=== PATIENT | female | born 1980 | race Two or more races ===

== ENCOUNTER 2021-08-16 10:45 | Emergency (ER) | payer MEDICAID, OTHER ==
[~2021-08-16] VITALS: Ht 167.6 cm; Wt 108.5 kg
[2021-08-16 11:02] VITALS: BP 220/107
--- NOTE | 2021-08-16 11:07 | NUR ---
PATIENT AMB TO [facility].
[2021-08-16] MEDS ORDERED: NIFEdipine 30 MG TABER PO ONE (11:40)
[2021-08-16] MEDS ORDERED: CLIN300C2 PO (11:48)
--- NOTE | 2021-08-16 11:56 | NUR ---
Patient does not wish to proceed with medical care recommended by DR MEDINA. Patient given information related to possible complications, up to and including , which could occur as a result of leaving hospital at this time. Patient verbalizes understanding of risks involved leaving against medical advice. Patient has signed AMA form.
== END 2021-08-16 11:56 | disposition left against medical advice (07) ==
LOC: MED 10:45
DX: K08.89 Other specified disorders of teeth and supporting structures (principal); R22.0 Localized swelling, mass and lump, head; I10 Essential (primary) hypertension; F12.10 Cannabis abuse, uncomplicated; Z71.6 Tobacco abuse counseling
CPT/HCPCS: 99283